=== PATIENT | male | born 1995 | race Two or more races ===

== ENCOUNTER 2016-08-03 19:03 | Emergency (ER) | payer OTHER ==
[2016-08-03 19:32] LABS: URINE APPEARANCE CLEAR; URINE BILIRUBIN NEGATIVE (NEGATIVE); URINE BLOOD NEGATIVE (NEGATIVE); URINE COLOR LIGHT YELLOW; URINE GLUCOSE (UA) NEGATIVE (NEGATIVE); URINE LEUKOCYTE ESTERASE NEGATIVE (NEGATIVE); URINE NITRITE NEGATIVE (NEGATIVE); URINE PROTEIN NEGATIVE (NEGATIVE); URINE UROBILINOGEN NORMAL (0-1 mg/dl)
[2016-08-03] MEDS ORDERED: LORAZEPAM 2 MG/ML 1ML SDV ONE (19:36)
[2016-08-03 20:08] LABS: ABSOLUTE NEUTROPHIL COUNT 7.4 K/mm3 (1.8-7.7); BASO % 0.3 % (0.2-1.0); EOS % 0.1 % (0.9-2.9); HEMOGLOBIN 16.1 gm/l (14.0-18.0); IMM NEUT% 0.3 % (0-1); LYMPH # 2.1 (1.0-4.8); LYMPH % 21.2 % (15-45); MEAN CELL VOLUME 87.5 fl (80.0-94.0); MEAN CORPUSCULAR HEMOGLOBIN 30.6 pg (27.0-31.0); MEAN PLATELET VOLUME 10.2 fl (7.4-10.4); MONO # 0.4 (0.0-0.8); MONO % 3.6 % (4-12); NEUT % 74.5 % (43-75); PLATELET COUNT 276 K/mm3 (130-400); RED CELL DISTRIBUTION WIDTH 12.4 % (11.5-14.5)
[2016-08-03 20:21] LABS: ALB/GLOB RATIO 1.6 (>1.0); ALBUMIN 4.9 gm/dL (3.5-5.7); CALCIUM 9.7 mg/dL (8.6-10.3)
[2016-08-03 20:22] LABS: TROPONIN I < 0.01 ng/ml (0.0-0.06)
[2016-08-03 20:25] LABS: CKMB ISOENZYME 1.8 ng/ml (0.6-6.3)
== END 2016-08-03 21:12 | disposition home or self-care (01) ==
LOC: ED 19:03
DX: R00.2 Palpitations (principal); F31.9 Bipolar disorder, unspecified; F14.10 Cocaine abuse, uncomplicated
CPT/HCPCS: 85025; 80053; 82553; 81003; 84484; 99284 ×2; 96374; J2060